=== PATIENT | female | born 1995 | race Caucasian/White ===

== ENCOUNTER 2018-10-02 08:04 | Emergency (ER) | payer OTHER ==
[~2018-10-02] VITALS: Ht 170.2 cm; Wt 99.8 kg
== END 2018-10-02 09:30 | disposition home or self-care (01) ==
LOC: FSED 08:04
DX: H65.02 Acute serous otitis media, left ear (principal); K02.9 Dental caries, unspecified
CPT/HCPCS: 87400; 99282

== ENCOUNTER 2018-11-17 12:36 | Emergency (ER) | payer OTHER ==
[~2018-11-17] VITALS: Ht 170.2 cm; Wt 99.8 kg
== END 2018-11-17 13:14 | disposition home or self-care (01) ==
LOC: FSED 12:36
DX: B86 Scabies (principal)
CPT/HCPCS: 99283